=== PATIENT | female | born 1965 | race Two or more races ===

== ENCOUNTER 2018-08-15 16:02 | Inpatient (IN) | payer MEDICAID ==
[~2018-08-15] VITALS: Ht 160 cm; Wt 56.4 kg
[2018-08-15] VITALS (12 sets, daily range): BP systolic 79–120; BP diastolic 45–75
[2018-08-15] MEDS ORDERED: NAPROXEN250 M1 PO (16:18)
[2018-08-15] MEDS ORDERED: Metoclopramide 10mg/2ml Inj IVP ONE (16:45)
[2018-08-15 17:21] LABS: HEMATOCRIT 37.1 % (37.0-47.0); HEMOGLOBIN 13.1 G/DL (12.0-16.0); MEAN CORPUSCULAR VOLUME 82 FL (80-99); PLATELET COUNT 175 K/UL (150-450); RED BLOOD COUNT 4.51 M/UL (4.20-5.40); RED CELL DISTRIBUTION WIDTH 11.3 % (11.6-14.8); WHITE BLOOD COUNT 20.3 K/UL (4.8-10.8)
--- NOTE | 2018-08-15 18:01 | Diagnostic Imaging Report ---
Indication: Abdominal pain Technique: Spiral acquisitions obtained through the abdomen and pelvis. No oral contrast utilized, per emergency room physician request No IV contrast utilized, per referring physician request.. Multiplanar reconstructions were generated. Total dose length product 552.86 mGycm. CTDIvol(s) 10.92 mGy. Dose reduction achieved using automated exposure control Comparison: None Findings: Lack of enteric contrast limits assessment of the GI tract. The appendix is dilated and there is infiltration of the periappendiceal fat. No discrete periappendiceal fluid collections or extra luminal gas demonstrated. Appendicoliths are seen at the base and at the tip of the appendix. A single diverticulum is seen coming off of the cecum. No evidence of diverticulitis.. No small bowel distention. No free or loculated intraperitoneal gas or fluid. There is a tiny umbilical hernia which contains only fat. The distal esophagus, stomach, duodenum are all unremarkable. Lack of IV contrast limits assessment of the solid organs. The liver is equivocally slightly hypoattenuating, consistent with fatty change. The gallbladder, bile ducts, pancreas, spleen, adrenals, kidneys are unremarkable. No ureteral calculi, hydronephrosis, or hydroureter demonstrated. The bladder is unremarkable. No pelvic mass or adenopathy. No retroperitoneal or mesenteric mass or adenopathy. The included lung bases demonstrate minimal atelectatic changes or scarring, otherwise clear. The bones are unremarkable except for minimal degenerative spondylosis changes. Impression: Positive for uncomplicated acute appendicitis Questionable minimal fatty infiltration of the liver Incidental findings as noted Findings discussed by phone with Dr. Larios in the emergency room at the time of interpretation The CT scanner at [facility] is accredited by the [employer] and the scans are performed using protocols designed to limit radiation exposure to as low as reasonably achievable to attain images of sufficient resolution adequate for diagnostic evaluation.
[2018-08-15 18:02] LABS: ANION GAP 13 mmol/L (5-15); BLOOD UREA NITROGEN 14 mg/dL (7-18); CALCIUM 9.3 MG/DL (8.5-10.1); CARBON DIOXIDE 25 MMOL/L (21-32); CHLORIDE 97 MMOL/L (98-107); CREATININE 0.8 MG/DL (0.55-1.30); POTASSIUM 3.2 MMOL/L (3.5-5.1); SODIUM 135 MMOL/L (136-145)
[2018-08-15 18:09] LABS: APPEARANCE,URINE CLEAR; BILIRUBIN, URINE NEGATIVE (NEGATIVE); COLOR,URINE PALE YELLOW; GLUCOSE, URINE (UA) NEGATIVE (NEGATIVE); KETONES,URINE 2+ (NEGATIVE); LEUKOCYTE ESTERASE ,URINE 2+ (NEGATIVE); NITRITE,URINE NEGATIVE (NEGATIVE); PH,URINE 7 (4.5-8.0); PROTEIN,URINE 2+ (NEGATIVE); UROBILINOGEN,URINE NORMAL MG/DL (0.0-1.0)
[2018-08-15 18:12] LABS: ALANINE AMINOTRANSFERASE 26 U/L (12-78); ALKALINE PHOSPHATASE 101 U/L (46-116); ASPARTATE AMINO TRANSFERASE 17 U/L (15-37); BILIRUBIN,TOTAL 0.5 MG/DL (0.2-1.0); CKMB 0.5 NG/ML (0.0-3.6)
--- NOTE | 2018-08-15 18:53 | Diagnostic Imaging Report ---
Indication: Shortness of breath Technique: One view of the chest Comparison: none Findings: Lungs and pleural spaces are clear. Heart size is normal Impression: No acute process
--- NOTE | 2018-08-15 18:59 | Emergency Room Report ---
History of Present Illness General Chief Complaint: Abdominal Pain Source: Patient (Arvind Manning) Present Illness HPI 53-year-old female with history of osteoarthritis currently on naproxen, here complaining of 2 days of 10 out of 10 abdominal pain mainly on the periumbilical and right lower quadrant. Patient reports multiple bouts of vomiting and nausea however denies bloody emesis. Denies diarrhea and constipation. Denies fever and chills. Denies urinary frequency. Patient reports that her pain started after she had a heavy meal. Denies recent travel , chest pain, syncope, palpitation, shortness of breath, and all other associated symptoms. Patient took naproxen today for pain however still extremely nauseous and reporting 10 out of 10 pain. Patient is in moderate distress, and hemodynamically stable (Arvind Manning) Allergies: Coded Allergies: No Known Allergies (Unverified , 08/15/18) Patient History Past Medical History: see triage record Past Surgical History: unable to obtain Pertinent Family History: none Now: No Immunizations: UTD Reviewed Nursing Documentation: PMH: Agreed; PSxH: Agreed (Arvind Manning) Nursing Documentation-PMH Past Medical History: No History, Except For (Arvind Manning) Review of Systems All Other Systems: negative except mentioned in HPI (Arvind Manning) Physical Exam Vital Signs Date Time Temp Pulse Resp B/P (MAP) Pulse Ox O2 Delivery O2 Flow Rate FiO2 08/15/18 16:09 98.2 95 17 116/76 (89) 99 Room Air Sp02 EP Interpretation: reviewed, normal General Appearance: alert, GCS 15, moderate distress Head: normocephalic, atraumatic Eyes: bilateral eye normal inspection, bilateral eye PERRL ENT: normal ENT inspection, hearing grossly normal, normal pharynx, normal voice Neck: normal inspection, full range of motion, supple, thyroid normal Respiratory: normal inspection, chest non-tender, lungs clear, normal breath sounds, no respiratory distress, no retraction, no wheezing Cardiovascular #1: normal inspection, normal peripheral pulses, regular rate, rhythm, no edema, no murmur, normal capillary refill Gastrointestinal: guarding - Right lower quadrant and periumbilical, rebound - Right lower quadrant McBurney's positive, tenderness Rectal: deferred Genitourinary: no CVA tenderness Musculoskeletal: normal inspection, back normal, digits/nails normal, gait/ station normal Neurologic: normal inspection, alert, oriented x3, responsive Psychiatric: normal inspection, judgement/insight normal Skin: normal inspection, normal color, no rash, warm/dry Lymphatic: normal inspection, no adenopathy (Arvind Manning) Medical Decision Making PA Attestation All my diagnosis and treatment plans were reviewed ad discussed with my supervising physician Dr. Larios (Arvind Manning) Diagnostic Impression: Primary Impression: Acute appendicitis ER Course 53-year-old female with history of osteoarthritis currently on naproxen, here complaining of 2 days of 10 out of 10 abdominal pain mainly on the periumbilical and right lower quadrant. Patient reports multiple bouts of vomiting and nausea however denies bloody emesis. Denies diarrhea and constipation. Denies fever and chills. Denies urinary frequency. Patient reports that her pain started after she had a heavy meal. Denies recent travel , chest pain, syncope, palpitation, shortness of breath, and all other associated symptoms. Patient took naproxen today for pain however still extremely nauseous and reporting 10 out of 10 pain. Patient is in moderate distress, and hemodynamically stable Ddx considered but are not limited to: appendicitis, cholycisitis, gastritis, gasthroentritis, UTI, pylonephritis, SBO, diverticulitis, influenza with GI manifestation, AR, Vital signs: are WNL, pt. is afebrile H&PE are most consistent with: Acute appendicitis ORDERS: abdominal CT, abdominal pain set, EKG, Reglan, Pepcid, troponin, ED INTERVENTIONS: Reglan, Pepcid Patient was admited with diagnosis of acute appendicitis to Dr. Brooks under supervision of : Ric pt stable at time of admission WBC: 20, (Arvind Manning) ER Course Patient presented for abdominal pain. She was noted to have onset of pain 2 days ago. Patient also has exam consistent with acute appendicitis. Surgical consult from Dr. Brooks was obtained. Patient will be admitted for further treatment of appendicitis. Patient will be admitted to Dr. Amadeo Murray for inpatient management due to panel physician. Labs Test 08/15/18 17:05 08/15/18 17:52 08/15/18 18:00 White Blood Count 20.3 K/UL (4.8-10.8) Red Blood Count 4.51 M/UL (4.20-5.40) Hemoglobin 13.1 G/DL (12.0-16.0) Hematocrit 37.1 % (37.0-47.0) Mean Corpuscular Volume 82 FL (80-99) Mean Corpuscular Hemoglobin 29.0 PG (27.0-31.0) Mean Corpuscular Hemoglobin Concent 35.2 G/DL (32.0-36.0) Red Cell Distribution Width 11.3 % (11.6-14.8) Platelet Count 175 K/UL (150-450) Mean Platelet Volume 9.2 FL (6.5-10.1) Neutrophils (%) (Auto) % (45.0-75.0) Lymphocytes (%) (Auto) % (20.0-45.0) Monocytes (%) (Auto) % (1.0-10.0) Eosinophils (%) (Auto) % (0.0-3.0) Basophils (%) (Auto) % (0.0-2.0) Differential Total Cells Counted 100 Neutrophils % (Manual) 85 % (45-75) Lymphocytes % (Manual) 9 % (20-45) Monocytes % (Manual) 6 % (1-10) Eosinophils % (Manual) 0 % (0-3) Basophils % (Manual) 0 % (0-2) Band Neutrophils 0 % (0-8) Platelet Estimate Adequate Platelet Morphology Normal Red Blood Cell Morphology Normal Sodium Level 135 MMOL/L (136-145) Potassium Level 3.2 MMOL/L (3.5-5.1) Chloride Level 97 MMOL/L (98-107) Carbon Dioxide Level 25 MMOL/L (21-32) Anion Gap 13 mmol/L (5-15) Blood Urea Nitrogen 14 mg/dL (7-18) Creatinine 0.8 MG/DL (0.55-1.30) Estimat Glomerular Filtration Rate > 60 mL/min (>60) Glucose Level 134 MG/DL (74-106) Calcium Level 9.3 MG/DL (8.5-10.1) Total Bilirubin 0.5 MG/DL (0.2-1.0) Aspartate Amino Transf (AST/SGOT) 17 U/L (15-37) Alanine Aminotransferase (ALT/SGPT) 26 U/L (12-78) Alkaline Phosphatase 101 U/L (46-116) Creatine Kinase MB 0.5 NG/ML (0.0-3.6) Troponin I 0.000 ng/mL (0.000-0.056) Total Protein 8.0 G/DL (6.4-8.2) Albumin 4.0 G/DL (3.4-5.0) Globulin 4.0 g/dL Albumin/Globulin Ratio 1.0 (1.0-2.7) Lipase 377 U/L (73-393) Urine Color Pale yellow Urine Appearance Clear Urine pH 7 (4.5-8.0) Urine Specific [place] 1.005 (1.005-1.035) Urine Protein 2+ (NEGATIVE) Urine Glucose (UA) Negative (NEGATIVE) Urine Ketones 2+ (NEGATIVE) Urine Blood 5+ (NEGATIVE) Urine Nitrite Negative (NEGATIVE) Urine Bilirubin Negative (NEGATIVE) Urine Urobilinogen Normal MG/DL (0.0-1.0) Urine Leukocyte Esterase 2+ (NEGATIVE) Urine RBC 15-20 /HPF (0 - 2) Urine WBC 10-15 /HPF (0 - 2) Urine Squamous Epithelial Cells Occasional /LPF Urine Bacteria Occasional /HPF (NONE) (Tien Larios MD) EKG Diagnostic Results Rate: normal Rhythm: NSR ST Segments: no acute changes (Arvind Manning) Chest X-Ray Diagnostic Results Chest X-Ray Diagnostic Results : Chest X-Ray Ordered: Yes # of Views/Limited/Complete: 1 View Indication: Other PA Xray: Interpretation reviewed, by supervising Interpretation: no consolidation, no effusion, no pneumothorax Impression: No acute disease Electronically Signed by: Arvind Barreto PA-C) CT/MRI/US Diagnostic Results CT/MRI/US Diagnostic Results : Imaging Test Ordered: abdominal CT no contrast Impression acute appendicitis (Arvind Manning) Last Vital Signs Date Time Temp Pulse Resp B/P (MAP) Pulse Ox O2 Delivery O2 Flow Rate FiO2 08/15/18 16:28 86 16 Room Air 08/15/18 16:28 98.4 114/72 100 (Arvind Manning) Status: improved (Tien Larios MD) Disposition: ADMITTED INPATIENT Condition: Stable Referrals: NOT CHOSEN IPA/,REFERRING (PCP) Arvind Manning Aug 15, 2018 18:58 Tien Larios MD Aug 15, 2018 19:06
[2018-08-15] MEDS ORDERED: Piperacillin/Tazobactam 3.375 GM in NS 110 ML IVPB ONE (19:00)
--- NOTE | 2018-08-15 19:10 | Pre-Procedure Note/Attestation ---
Pre-Procedure Note/Attestation Complete Prior to Procedure Planned Procedure: not applicable Procedure Narrative: Laparocopic appendectomy possible open appendectomy Indications for Procedure Pre-Operative Diagnosis: acute appendicitis Attestation I attest that I discussed the nature of the procedure; its benefits; risks and complications; and alternatives (and the risks and benefits of such alternatives ), prior to the procedure, with the patient (or the patient's legal tour sales representative). I attest that, if there was a reasonable possibility of needing a blood transfusion, the patient (or the patient's legal tour sales representative) was given the [facility] standardized written summary, pursuant to the [place] Blood Safety Act ([place] Health and Safety Code # 1645, as amended). I attest that I re-evaluated the patient just prior to the surgery and that there has been no change in the patient's H&P, except as documented below: Collin Brooks MD Aug 15, 2018 19:10
[2018-08-15] MEDS ORDERED: Morphine Sulfate 2mg/ml Inj(IV/IM USE ONLY) IVP PRN (19:30)
[2018-08-15] MEDS ORDERED: Bacitracin 50000 Units Vial ONE (19:44)
[2018-08-15] MEDS ORDERED: Bupivacaine 0.25% Inj 30ml INJ ONE (19:44)
[2018-08-15] MEDS ORDERED: NeoSporin Gu Irrig 1ml Amp IRRIG ONE (19:44)
[2018-08-15] MEDS ORDERED: Zemuron 50mg/5ml Inj IV ONE (19:54)
[2018-08-15] MEDS ORDERED: Glycopyrrolate 0.2mg/ml 1ml Vial ONE (19:55)
[2018-08-15] MEDS ORDERED: Metoclopramide 10mg/2ml Inj ONE (19:55)
[2018-08-15] MEDS ORDERED: fentaNYL 100 mcg/2 mL IV ONE (19:55)
[2018-08-15] MEDS ORDERED: Propofol 200mg/20ml IV ONE (19:55)
[2018-08-15] MEDS ORDERED: Neostigmine 1mg/ml 10ml Inj ONE (19:55)
[2018-08-15] MEDS ORDERED: Lidocaine 1% MPF 10mg/ml 5ml ONE (19:55)
[2018-08-15] MEDS ORDERED: Ketorolac 30mg Inj ONE (19:55)
[2018-08-15] MEDS ORDERED: D5NS 1,000 ML IV SCH (20:29)
[2018-08-15] MEDS ORDERED: Sterile Water Irrig 1000ml IRRIG ONE (20:30)
[2018-08-15] MEDS ORDERED: NS Irrig 1000ml ONE (20:30)
[2018-08-15] MEDS ORDERED: LR 1000ml ONE (20:30)
--- NOTE | 2018-08-15 20:30 | History and Physical Report ---
DATE OF ADMISSION: 08/15/2018 REASON FOR ADMISSION: 1. Abdominal pain. 2. Acute appendicitis. HISTORY OF PRESENT ILLNESS: The patient is a 53-year-old female with known arthritis, who is currently on naproxen and started complaining about 10/10 abdominal pain over the past two days in the periumbilical right lower quadrant. She started developing bouts of nausea, vomiting. No night sweats, fevers, or chills. The naproxen did not help with the pain and she was feeling still extremely nauseous with 10/10 pain as such she presented to the emergency room for further evaluation and care. CT of the abdomen with no contrast demonstrated acute appendicitis. As such, General Surgery was consulted and the patient is being prepped for emergent appendectomy. ALLERGIES: No known drug allergies. PAST MEDICAL HISTORY: Osteoarthritis. PAST SURGICAL HISTORY: None. FAMILY HISTORY: Positive for hypertension and diabetes. REVIEW OF SYSTEMS: NEUROLOGIC: The patient denies headache, change in vision, syncope or presyncopal episodes. CARDIOVASCULAR: No current chest pain, palpitations, or angina. PULMONARY: No difficulty breathing, productive cough, sputum. GASTROINTESTINAL/GENITOURINARY: The patient is having abdominal pain, nausea, and vomiting. No diarrhea ENDOCRINOLOGY: No night sweats, fevers, or chills. LABORATORY DATA: Labs dated August 15, 2018, white blood cell count 20.3, hemoglobin 13.1, platelet 175. Sodium 135, potassium 3.2, glucose 134, calcium 9.3. Troponin 0. PHYSICAL EXAMINATION: VITAL SIGNS: Blood pressure 114/72, respiratory rate 16, pulse 86, temperature 98.4, 100% oxygen saturation on room air. GENERAL: The patient awake, alert, not in distress. HEENT: Extraocular muscles intact. No lymphadenopathy. Oropharyngeal mucosa is clear and dry. CARDIOVASCULAR: S1, S2. No murmurs, rubs, or gallops. Regular rate. PULMONARY: Clear to auscultation bilaterally. No rales, rhonchi or wheezes. ABDOMEN: Tenderness in the right lower quadrant, periumbilical area, very tender to touch. Soft bowel sounds. EXTREMITIES: No edema noted. ASSESSMENT AND PLAN: 1. Abdominal pain with nausea and vomiting. CT of the abdomen and pelvis was positive for uncomplicated acute appendicitis. As such, General Surgery was consulted and patient is to have an appendectomy tonight. 2. DVT prophylaxis with SCDs. 3. Leukocytosis secondary to acute appendicitis. The patient undergoing emergent appendectomy and has received IV Zosyn. 4. Gastrointestinal prophylaxis with famotidine. Nnamdi Garcia MD DR: Aiyana JOB#: [id number] CC:
[2018-08-15] MEDS ORDERED: D5 1/2NS w/KCl 20mEq 1,000 ML IV SCH (21:21)
--- NOTE | 2018-08-15 21:21 | Brief Operative Note ---
Immediate Post Operative Note Operative Note Pre-op Diagnosis: acute appendicitis Post-op Diagnosis: same as pre-op Findings: consistent w/pre-op dx studies Surgeon: MD Asim [employer] Inspector Trimmer: None Anesthesiologist: ELVIS Gates Anesthesia: general Specimen: yes Complications: none Condition: stable Fluids: Per accountant Estimated Blood Loss: minimal Drains: none Implant(s) used?: No Collin Brooks MD Aug 15, 2018 21:21
[2018-08-15] MEDS ORDERED: Acetaminophen 650 MG SUPP RECTAL PRN (21:30)
[2018-08-15] MEDS ORDERED: HYDROmorphone 1mg/ml Carpuject IVP PRN (21:30)
[2018-08-15] MEDS ORDERED: Metoclopramide 10mg/2ml Inj IVP PRN (21:30)
[2018-08-15] MEDS ORDERED: Hydromorphone 0.5mg/0.5ml inj IVP PRN (21:30)
--- NOTE | 2018-08-15 21:38 | Immediate Post-Op Evaluation ---
Immediate Post-Op Evalulation Immediate Post-Op Evalulation Procedure: Lap [place] Date of Evaluation: Aug 15, 2018 Time of Evaluation: 21:40 IV Fluids: 1300 Blood Products: 0 Blood Pressure Systolic: 80 Blood Pressure Diastolic: 50 Pulse Rate: 75 Respiratory Rate: 14 O2 Sat by Pulse Oximetry: 99 Temperature (Fahrenheit): 97.8 Pain Score (1-10): 0 Nausea: No Vomiting: No Patient Status: awake, reacts, patent Hydration Status: adequate Drug: none Mily Bajwa CRNA Aug 15, 2018 21:38
--- NOTE | 2018-08-15 21:40 | Anethesia Preoperative Eval ---
Anesthesia Pre-op PMH/ROS General ASA Score: ASA 2 Mallampati Score Class I : Soft palate, uvula, fauces, pillars visible Class II: Soft palate, uvula, fauces visible Class III: Soft palate, base of uvula visible Class IV: Only hard plate visible Mallampati Classification: Class II Surgeon: Cecilia Diagnosis: acute appendicitis Surgical Procedure: Lap Appendectomy Anesthesia History: none Family History: no anesthesia problems Allergies: Coded Allergies: No Known Allergies (Unverified , 08/15/18) Medications: see eMAR Patient NPO?: Yes NPO Date: Aug 15, 2018 NPO Time: 00:01 Past Medical History Cardiovascular: Denies: HTN, CAD, [place], valve dz, arrhythmia, other Pulmonary: Denies: asthma, COPD, CUAUHTEMOC, other Gastrointestinal/Genitourinary: Denies: GERD, CRI, ESRD, other Neurologic/Psychiatric: Denies: dementia, CVA, depression/anxiety, TIA, other Endocrine: Denies: DM, hypothyroidism, steroids, other HEENT: Denies: cataract (L), cataract (R), glaucoma, ASA'CARSARMIUT (L), ASA'CARSARMIUT (R), other Hematology/Immune: Denies: anemia, DVT, bleeding disorder, other PSxH Narrative: breast surgery Anesthesia Pre-op Phys. Exam Physician Exam Last Vital Signs Date Time Temp Pulse Resp B/P (MAP) Pulse Ox O2 Delivery O2 Flow Rate FiO2 08/15/18 16:28 86 16 Room Air 08/15/18 16:28 98.4 114/72 100 Constitutional: NAD Neurologic: CN 2-12 intact, other - difficult to arouse Cardiovascular: RRR Respiratory: CTA Gastrointestinal: S/NT/ND Airway Exam Mallampati Classification 2 Mallampati Score: Class II MO: full ROM: full Dentures: upper Anesthesia Pre-op A/P Labs Hematology Test 08/15/18 17:05 White Blood Count 20.3 K/UL (4.8-10.8) H Red Blood Count 4.51 M/UL (4.20-5.40) Hemoglobin 13.1 G/DL (12.0-16.0) Hematocrit 37.1 % (37.0-47.0) Mean Corpuscular Volume 82 FL (80-99) Mean Corpuscular Hemoglobin 29.0 PG (27.0-31.0) Mean Corpuscular Hemoglobin Concent 35.2 G/DL (32.0-36.0) Red Cell Distribution Width 11.3 % (11.6-14.8) L Platelet Count 175 K/UL (150-450) Mean Platelet Volume 9.2 FL (6.5-10.1) Neutrophils (%) (Auto) % (45.0-75.0) Lymphocytes (%) (Auto) % (20.0-45.0) Monocytes (%) (Auto) % (1.0-10.0) Eosinophils (%) (Auto) % (0.0-3.0) Basophils (%) (Auto) % (0.0-2.0) Differential Total Cells Counted 100 Neutrophils % (Manual) 85 % (45-75) H Lymphocytes % (Manual) 9 % (20-45) L Monocytes % (Manual) 6 % (1-10) Eosinophils % (Manual) 0 % (0-3) Basophils % (Manual) 0 % (0-2) Band Neutrophils 0 % (0-8) Platelet Estimate Adequate Platelet Morphology Normal Red Blood Cell Morphology Normal Coagulation Test 08/15/18 18:00 Prothrombin Time 10.8 SEC (9.30-11.50) Prothromb Time International Ratio 1.0 (0.9-1.1) Activated Partial Thromboplast Time 32 SEC (23-33) Chemistry Test 08/15/18 17:05 Sodium Level 135 MMOL/L (136-145) L Potassium Level 3.2 MMOL/L (3.5-5.1) L Chloride Level 97 MMOL/L (98-107) L Carbon Dioxide Level 25 MMOL/L (21-32) Anion Gap 13 mmol/L (5-15) Blood Urea Nitrogen 14 mg/dL (7-18) Creatinine 0.8 MG/DL (0.55-1.30) Estimat Glomerular Filtration Rate > 60 mL/min (>60) Glucose Level 134 MG/DL (74-106) H Calcium Level 9.3 MG/DL (8.5-10.1) Total Bilirubin 0.5 MG/DL (0.2-1.0) Aspartate Amino Transf (AST/SGOT) 17 U/L (15-37) Alanine Aminotransferase (ALT/SGPT) 26 U/L (12-78) Alkaline Phosphatase 101 U/L (46-116) Creatine Kinase MB 0.5 NG/ML (0.0-3.6) Troponin I 0.000 ng/mL (0.000-0.056) Total Protein 8.0 G/DL (6.4-8.2) Albumin 4.0 G/DL (3.4-5.0) Globulin 4.0 g/dL Albumin/Globulin Ratio 1.0 (1.0-2.7) Lipase 377 U/L (73-393) Studies Pre-op Studies: EKG - st Risk Assessment & Plan Plan: Mily Blancas CRNA Aug 15, 2018 21:40
[2018-08-15] MEDS ORDERED: fentaNYL 100 mcg/2 mL IV PRN (21:45)
--- NOTE | 2018-08-15 22:30 | Operative Note - Dictated ---
DATE OF OPERATION: 08/15/2018 PREOPERATIVE DIAGNOSIS: Acute appendicitis. POSTOPERATIVE DIAGNOSIS: Acute appendicitis. OPERATION: Laparoscopic appendectomy. COMPLICATION: None. SURGEON: Collin Brooks M.D. AIRCRAFT ENGINE MECHANIC: None. ANESTHESIA: General with endotracheal tube. ANESTHESIOLOGIST: ELVIS Gates INDICATION: This is a 53-year-old, female, who presented to emergency room complaining of abdominal pain since August 13, 2018 in the morning. She stated the pain was located in the lower abdomen and she had one episode of vomiting today. She claimed that she had fever and chills. Physical examination showed tenderness, voluntary guarding and rebound tenderness at right lower quadrant. CBC showed a WBC of 20,300 with a left shift. CAT scan of the abdomen was interpreted as acute appendicitis. DESCRIPTION OF PROCEDURE: The patient was placed supine on the operating table and after general anesthesia with endotracheal tube, the abdomen was properly prepped and draped. A small incision was given above the umbilicus through which a Veress needle was introduced into the intraperitoneal cavity. This cavity was insufflated up to 15 mmHg and then the Veress needle was removed and a 5 mm trocar was placed in the intraperitoneal cavity through the incision above the umbilicus. Laparoscope and camera was introduced into the intraperitoneal cavity through the trocar above the umbilicus. Under direct vision, a 5 mm trocar was placed at the suprapubic area and a 12 mm trocar was placed at the left lower quadrant of the abdomen. Initially, a rapid exploration was performed which showed diaphragms to be normal. The part of the stomach that can be seen was normal. The liver and gallbladder was normal. Bowels were covered with omentum. Exploration of the right lower quadrant cavity was performed which showed inflammatory mass at this area. Cecum was identified and isolated. The inflammatory mass was gradually dissected and isolated which was inflamed Appendix with severe inflammation of the mesoappendix. The appendix and mesoappendix was exposed. Initially the mesoappendix was ligated and transected with the help of the GORDY stapler and then the appendix was ligated and transected at the base with the help of another GORDY stapler. The appendix was removed from the intraperitoneal cavity through the incision at the left lower quadrant with the help of the Endo pouch. After removal of the appendix, the intraperitoneal cavity especially the right paracolic gutter and the pelvis was thoroughly irrigated with antibiotic solution. Another exploration was performed and there was no bleeding or complication. The trocars were removed under direct vision. The incisions were infiltrated with total of 30 mL of Marcaine and then the subcutaneous tissue was approximated with 4-0 chromic. The skin incisions were approximated with running subcuticular suture of 4-0 chromic. The patient tolerated the procedure very well and was transferred to recovery room in stable condition and extubated. The sponge and needle count correct. Estimated blood loss was 5 mL. Condition of the patient at the end of procedure is stable. Collin Brooks M.D. DR: Rene JOB#: [id number] CC: [email or web address]
[2018-08-16] VITALS (7 sets, daily range): BP systolic 82–98; BP diastolic 47–59
[2018-08-16] MEDS: D5 1/2NS w/KCl 20mEq 1,000 ML IV SCH ×3 (00:19→17:58)
--- NOTE | 2018-08-16 03:30 | Consultation ---
DATE OF CONSULTATION: 08/15/2018 PREOPERATIVE CONSULTATION CONSULTING PHYSICIAN: Collin Brooks M.D. REQUESTING PHYSICIAN: Emergency room physician. HISTORY OF PRESENT ILLNESS: This is a 53-year-old, female, who presented with abdominal pain for 2 days. She stated the pain started on August 13, 2018 in the morning and apparently it has been periumbilical. At the present time, the pain is mainly in the lower abdomen. She stated that she had vomited today. She claimed that she had fever but denies any cough. She claimed that she has dysuria. She denies any previous history of similar pain. PAST MEDICAL HISTORY: She denies allergies, asthma, diabetes, hypertension, cardiac and renal diseases. PAST SURGICAL HISTORY: Include left breast biopsy. MEDICATIONS: The patient takes Naprosyn for the joint pain. SOCIAL HISTORY: The patient is a 53-year-old, female, who is with three children. 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 REVIEW OF SYSTEMS: Noncontributory. PHYSICAL EXAMINATION: GENERAL: The patient appeared to be a well-developed, well-nourished, mildly obese, 53-year-old, female, lying on the gurney, complaining of abdominal pain. HEENT: Head is normocephalic and atraumatic. Eyes, pupils are equal, round, and reactive to light. Mouth is clear. NECK: There is no palpable thyromegaly or adenopathy. CHEST: Clear to auscultation and percussion. HEART: There is no gallop or murmur. S1 and S2 are within normal limits. ABDOMEN: Soft and flat with tenderness, voluntary guarding, and mild rebound tenderness in the right lower quadrant. There is no organomegaly and bowel sounds are present. GENITAL: Deferred. EXTREMITIES: Within normal limits. LABORATORY DATA: CBC has shown a WBC of 20,300 with a left shift. Chemistry is within normal limits. UA has shown 10 to 15 wbc's. CAT scan of the abdomen has been interpreted as acute appendicitis with dilated appendix with periappendiceal stranding and fecalith. ASSESSMENT: Acute appendicitis. PLAN: After rehydration, the patient will undergo a laparoscopy appendectomy, possible open appendectomy. The risks and benefits have been explained to her. She understood and wanted to consent. Collin Brooks M.D. DR: Rene JOB#: [id number] CC:
[2018-08-16 06:35] LABS: HEMATOCRIT 31.7 % (37.0-47.0); MEAN CORPUSCULAR VOLUME 86 FL (80-99); PLATELET COUNT 134 K/UL (150-450); RED BLOOD COUNT 3.68 M/UL (4.20-5.40); RED CELL DISTRIBUTION WIDTH 12.1 % (11.6-14.8); WHITE BLOOD COUNT 17.3 K/UL (4.8-10.8)
[2018-08-16 06:37] LABS: ANION GAP 9 mmol/L (5-15); BLOOD UREA NITROGEN 13 mg/dL (7-18); CALCIUM 7.7 MG/DL (8.5-10.1); CARBON DIOXIDE 22 MMOL/L (21-32); CHLORIDE 109 MMOL/L (98-107); CREATININE 0.9 MG/DL (0.55-1.30); POTASSIUM 3.9 MMOL/L (3.5-5.1); SODIUM 140 MMOL/L (136-145)
[2018-08-16] MEDS: Piperacillin/Tazobactam 4.5 GM in NS 110 ML IVPB SCH ×2 (06:40→14:10)
--- NOTE | 2018-08-16 07:25 | Nephrology Progress Note ---
Assessment/Plan Assessment/Plan: A/P 1) Abd Pain- appendicitis - resolved 2) Apendicitis- Abx, s/p appendectomy. Abx - DC once cleared by gen surgery 3) DVT prophylaxis- SCD 4) GI prophylaxsis- famotidine Subjective Date patient seen: Aug 16, 2018 Time patient seen: 07:22 ROS Limited/Unobtainable: No Allergies: Coded Allergies: No Known Allergies (Unverified , 08/15/18) Subjective Patient feeling better. Having clear liquid diet Objective Last 24 Hour Vital Signs Date Time Temp Pulse Resp B/P (MAP) Pulse Ox O2 Delivery O2 Flow Rate FiO2 08/16/18 04:00 98.5 75 18 82/47 (59) 99 08/16/18 00:01 98.0 86 18 85/54 (64) 98 08/15/18 23:08 Nasal Cannula 2.0 08/15/18 23:00 97.2 80 18 85/52 (63) 99 08/15/18 22:42 98.0 84 18 87/52 (64) 98 08/15/18 22:38 98.0 84 18 90/52 98 Nasal Cannula 3 08/15/18 22:30 82 18 85/54 98 Nasal Cannula 3 08/15/18 22:15 82 18 84/57 99 Nasal Cannula 3 08/15/18 22:05 85 20 86/55 98 Nasal Cannula 3 08/15/18 21:55 81 22 83/55 100 Simple Mask 6 08/15/18 21:45 79 23 83/52 100 Simple Mask 6 08/15/18 21:40 78 24 81/47 99 Simple Mask 6 08/15/18 21:38 75 14 99 08/15/18 21:35 97.8 75 14 79/45 99 Simple Mask 6 08/15/18 20:30 98.4 82 16 120/75 100 Room Air 08/15/18 19:20 98.4 16 120/75 100 Room Air 08/15/18 16:28 86 16 Room Air 08/15/18 16:28 98.4 86 16 114/72 100 Room Air 08/15/18 16:09 98.2 95 17 116/76 (89) 99 Room Air Intake and Output 08/15/18 08/16/18 18:59 06:59 Intake Total 3200 ml Output Total 808 ml Balance 2392 ml Intake Oral 300 ml IV Total 2900 ml Output Urine Total 800 ml Estimated Blood Loss 8 ml # Voids 1 1 Laboratory Tests 08/15/18 17:05: White Blood Count 20.3H, Red Blood Count 4.51, Hemoglobin 13.1, Hematocrit 37.1 , Mean Corpuscular Volume 82, Mean Corpuscular Hemoglobin 29.0, Mean Corpuscular Hemoglobin Concent 35.2, Red Cell Distribution Width 11.3L, Platelet Count 175, Mean Platelet Volume 9.2, Neutrophils (%) (Auto) , Lymphocytes (%) (Auto) , Monocytes (%) (Auto) , Eosinophils (%) (Auto) , Basophils (%) (Auto) , Differential Total Cells Counted 100, Neutrophils % ( Manual) 85H, Lymphocytes % (Manual) 9L, Monocytes % (Manual) 6, Eosinophils % ( Manual) 0, Basophils % (Manual) 0, Band Neutrophils 0, Platelet Estimate Adequate, Platelet Morphology Normal, Red Blood Cell Morphology Normal, Sodium Level 135L, Potassium Level 3.2L, Chloride Level 97L, Carbon Dioxide Level 25, Anion Gap 13, Blood Urea Nitrogen 14, Creatinine 0.8, Estimat Glomerular Filtration Rate > 60, Glucose Level 134H, Calcium Level 9.3, Total Bilirubin 0.5 , Aspartate Amino Transf (AST/SGOT) 17, Alanine Aminotransferase (ALT/SGPT) 26, Alkaline Phosphatase 101, Creatine Kinase MB 0.5, Troponin I 0.000, Total Protein 8.0, Albumin 4.0, Globulin 4.0, Albumin/Globulin Ratio 1.0, Lipase 377 08/15/18 17:52: Urine Color Pale yellow, Urine Appearance Clear, Urine pH 7, Urine Specific [place] 1.005, Urine Protein 2+H, Urine Glucose (UA) Negative, Urine Ketones 2+H , Urine Blood 5+H, Urine Nitrite Negative, Urine Bilirubin Negative, Urine Urobilinogen Normal, Urine Leukocyte Esterase 2+H, Urine RBC 15-20H, Urine WBC 10-15H, Urine Squamous Epithelial Cells Occasional, Urine Bacteria Occasional 08/15/18 18:00: Prothrombin Time 10.8, Prothromb Time International Ratio 1.0, Activated Partial Thromboplast Time 32 08/16/18 05:20: White Blood Count 17.3H, Red Blood Count 3.68L, Hemoglobin 11.0L, Hematocrit 31.7L, Mean Corpuscular Volume 86, Mean Corpuscular Hemoglobin 29.9, Mean Corpuscular Hemoglobin Concent 34.7, Red Cell Distribution Width 12.1, Platelet Count 134L, Mean Platelet Volume 10.8H, Neutrophils (%) (Auto) , Lymphocytes (% ) (Auto) , Monocytes (%) (Auto) , Eosinophils (%) (Auto) , Basophils (%) (Auto) , Neutrophils % (Manual) [Pending], Lymphocytes % (Manual) [Pending], Platelet Estimate [Pending], Platelet Morphology [Pending], Sodium Level 140, Potassium Level 3.9, Chloride Level 109H, Carbon Dioxide Level 22, Anion Gap 9, Blood Urea Nitrogen 13, Creatinine 0.9, Estimat Glomerular Filtration Rate > 60, Glucose Level 143H, Calcium Level 7.7L Height (Feet): 5 Height (Inches): 3.00 Weight (Pounds): 125 General Appearance: no apparent distress, alert EENT: normal ENT inspection Neck: normal alignment, supple Cardiovascular: normal rate, regular rhythm Respiratory/Chest: lungs clear Abdomen: non tender, soft Edema: no edema noted Arm (L), no edema noted Arm (R), no edema noted Leg (L), no edema noted Leg (R), no edema noted Pedal (L), no edema noted Pedal (R), no edema noted Generalized Nnamdi Garcia MD Aug 16, 2018 07:25
--- NOTE | 2018-08-16 07:45 | 48 Hour Post Anesthesia Eval ---
Post Anesthesia Evaluation Procedure: Lap Appy Date of Evaluation: Aug 16, 2018 Time of Evaluation: 07:45 Blood Pressure Systolic: 85 0: 40 Pulse Rate: 75 Respiratory Rate: 14 Temperature (Fahrenheit): 99.0 O2 Sat by Pulse Oximetry: 98 Airway: patent Nausea: No Vomiting: No Hydration Status: adequate Cardiopulmonary Status: stable Mental Status/LOC: patient returned to baseline Follow-up Care/Observations: na Post-Anesthesia Complications: none Follow-up care needed: N/A Mily Bajwa CRNA Aug 16, 2018 07:45
[2018-08-16] MEDS ORDERED: Tubing IV Secondary IV ONE (10:48)
--- NOTE | 2018-08-16 13:15 | General Surgery Progress Note ---
General Surgery-Progress Note Subjective Symptoms: passing flatus Objective Last 24 Hour Vital Signs Date Time Temp Pulse Resp B/P (MAP) Pulse Ox O2 Delivery O2 Flow Rate FiO2 08/16/18 09:00 Room Air 08/16/18 08:00 98.1 76 16 91/56 (68) 98 08/16/18 07:45 75 14 98 08/16/18 04:00 98.5 75 18 82/47 (59) 99 08/16/18 00:01 98.0 86 18 85/54 (64) 98 08/15/18 23:08 Nasal Cannula 2.0 08/15/18 23:00 97.2 80 18 85/52 (63) 99 08/15/18 22:42 98.0 84 18 87/52 (64) 98 08/15/18 22:38 98.0 84 18 90/52 98 Nasal Cannula 3 08/15/18 22:30 82 18 85/54 98 Nasal Cannula 3 08/15/18 22:15 82 18 84/57 99 Nasal Cannula 3 08/15/18 22:05 85 20 86/55 98 Nasal Cannula 3 08/15/18 21:55 81 22 83/55 100 Simple Mask 6 08/15/18 21:45 79 23 83/52 100 Simple Mask 6 08/15/18 21:40 78 24 81/47 99 Simple Mask 6 08/15/18 21:38 75 14 99 08/15/18 21:35 97.8 75 14 79/45 99 Simple Mask 6 08/15/18 20:30 98.4 82 16 120/75 100 Room Air 08/15/18 19:20 98.4 16 120/75 100 Room Air 08/15/18 16:28 86 16 Room Air 08/15/18 16:28 98.4 86 16 114/72 100 Room Air 08/15/18 16:09 98.2 95 17 116/76 (89) 99 Room Air I&O Intake and Output 08/15/18 08/16/18 19:00 07:00 Intake Total 3200 ml Output Total 808 ml Balance 2392 ml Intake Oral 300 ml IV Total 2900 ml Output Urine Total 800 ml Estimated Blood Loss 8 ml # Voids 1 1 Dressing: dry Drains: none Respiratory: clear Abdomen: soft, flat, tenderness, decreased bowel sounds Extremities: no tenderness Laboratory Tests Test 08/15/18 17:05 08/15/18 17:52 08/15/18 18:00 08/16/18 05:20 White Blood Count 20.3 K/UL (4.8-10.8) H 17.3 K/UL (4.8-10.8) H Red Blood Count 4.51 M/UL (4.20-5.40) 3.68 M/UL (4.20-5.40) L Hemoglobin 13.1 G/DL (12.0-16.0) 11.0 G/DL (12.0-16.0) L Hematocrit 37.1 % (37.0-47.0) 31.7 % (37.0-47.0) L Mean Corpuscular Volume 82 FL (80-99) 86 FL (80-99) Mean Corpuscular Hemoglobin 29.0 PG (27.0-31.0) 29.9 PG (27.0-31.0) Mean Corpuscular Hemoglobin Concent 35.2 G/DL (32.0-36.0) 34.7 G/DL (32.0-36.0) Red Cell Distribution Width 11.3 % (11.6-14.8) L 12.1 % (11.6-14.8) Platelet Count 175 K/UL (150-450) 134 K/UL (150-450) L Mean Platelet Volume 9.2 FL (6.5-10.1) 10.8 FL (6.5-10.1) H Neutrophils (%) (Auto) % (45.0-75.0) % (45.0-75.0) Lymphocytes (%) (Auto) % (20.0-45.0) % (20.0-45.0) Monocytes (%) (Auto) % (1.0-10.0) % (1.0-10.0) Eosinophils (%) (Auto) % (0.0-3.0) % (0.0-3.0) Basophils (%) (Auto) % (0.0-2.0) % (0.0-2.0) Differential Total Cells Counted 100 100 Neutrophils % (Manual) 85 % (45-75) H 90 % (45-75) H Lymphocytes % (Manual) 9 % (20-45) L 6 % (20-45) L Monocytes % (Manual) 6 % (1-10) 4 % (1-10) Eosinophils % (Manual) 0 % (0-3) 0 % (0-3) Basophils % (Manual) 0 % (0-2) 0 % (0-2) Band Neutrophils 0 % (0-8) 0 % (0-8) Platelet Estimate Adequate Decreased L Platelet Morphology Normal Normal Red Blood Cell Morphology Normal Normal Sodium Level 135 MMOL/L (136-145) L 140 MMOL/L (136-145) Potassium Level 3.2 MMOL/L (3.5-5.1) L 3.9 MMOL/L (3.5-5.1) Chloride Level 97 MMOL/L (98-107) L 109 MMOL/L (98-107) H Carbon Dioxide Level 25 MMOL/L (21-32) 22 MMOL/L (21-32) Anion Gap 13 mmol/L (5-15) 9 mmol/L (5-15) Blood Urea Nitrogen 14 mg/dL (7-18) 13 mg/dL (7-18) Creatinine 0.8 MG/DL (0.55-1.30) 0.9 MG/DL (0.55-1.30) Estimat Glomerular Filtration Rate > 60 mL/min (>60) > 60 mL/min (>60) Glucose Level 134 MG/DL (74-106) H 143 MG/DL (74-106) H Calcium Level 9.3 MG/DL (8.5-10.1) 7.7 MG/DL (8.5-10.1) L Total Bilirubin 0.5 MG/DL (0.2-1.0) Aspartate Amino Transf (AST/SGOT) 17 U/L (15-37) Alanine Aminotransferase (ALT/SGPT) 26 U/L (12-78) Alkaline Phosphatase 101 U/L (46-116) Creatine Kinase MB 0.5 NG/ML (0.0-3.6) Troponin I 0.000 ng/mL (0.000-0.056) Total Protein 8.0 G/DL (6.4-8.2) Albumin 4.0 G/DL (3.4-5.0) Globulin 4.0 g/dL Albumin/Globulin Ratio 1.0 (1.0-2.7) Lipase 377 U/L (73-393) Urine Color Pale yellow Urine Appearance Clear Urine pH 7 (4.5-8.0) Urine Specific [place] 1.005 (1.005-1.035) Urine Protein 2+ (NEGATIVE) H Urine Glucose (UA) Negative (NEGATIVE) Urine Ketones 2+ (NEGATIVE) H Urine Blood 5+ (NEGATIVE) H Urine Nitrite Negative (NEGATIVE) Urine Bilirubin Negative (NEGATIVE) Urine Urobilinogen Normal MG/DL (0.0-1.0) Urine Leukocyte Esterase 2+ (NEGATIVE) H Urine RBC 15-20 /HPF (0 - 2) H Urine WBC 10-15 /HPF (0 - 2) H Urine Squamous Epithelial Cells Occasional /LPF Urine Bacteria Occasional /HPF (NONE) Prothrombin Time 10.8 SEC (9.30-11.50) Prothromb Time International Ratio 1.0 (0.9-1.1) Activated Partial Thromboplast Time 32 SEC (23-33) Assessment Additional Comments S/P lap appy Plan Additional Comments continue present treatment Collin Brooks MD Aug 16, 2018 13:15
[2018-08-16] MEDS: Docusate Sod/Senna tab ORAL SCH ×2 (13:43→17:31)
--- NOTE | 2018-08-16 16:04 | Cardiology Report ---
APPROVED REPORT EKG Measurement Heart [id number] Normal sinus rhythm Possible Left atrial enlargement Left axis deviation Low voltage QRS Incomplete right bundle branch block Possible Anterolateral infarct, age undetermined Abnormal ECG
[2018-08-16] MEDS: Zoysn 3.37gm in NS 100ML IVPB SCH (21:16)
[2018-08-17 04:00] VITALS: BP 95/57
[2018-08-17] MEDS: D5 1/2NS w/KCl 20mEq 1,000 ML IV SCH (05:45)
[2018-08-17] MEDS: Zoysn 3.37gm in NS 100ML IVPB SCH (06:22)
--- NOTE | 2018-08-17 07:19 | Nephrology Progress Note ---
Assessment/Plan Assessment/Plan: A/P 1) Abd Pain- appendicitis - resolved 2) Apendicitis- Abx, s/p appendectomy. Abx - DC once cleared by gen surgery - am labs pending - Abx at DC per gen surgery 3) DVT prophylaxis- SCD 4) GI prophylaxsis- famotidine Subjective Date patient seen: Aug 17, 2018 Time patient seen: 07:17 ROS Limited/Unobtainable: No Allergies: Coded Allergies: No Known Allergies (Unverified , 08/15/18) Subjective Patient feeling better. Having clear liquid diet in no dsitress Objective Last 24 Hour Vital Signs Date Time Temp Pulse Resp B/P (MAP) Pulse Ox O2 Delivery O2 Flow Rate FiO2 08/17/18 04:00 98.7 71 18 95/57 (70) 97 08/16/18 21:00 Room Air 08/16/18 20:00 99.0 73 17 87/59 (68) 95 08/16/18 16:00 99.4 78 16 98/58 (71) 99 08/16/18 12:00 98.2 70 15 88/57 (67) 99 08/16/18 09:00 Room Air 08/16/18 08:00 98.1 76 16 91/56 (68) 98 08/16/18 07:45 75 14 98 Intake and Output 08/16/18 08/17/18 18:59 06:59 Intake Total 3600 ml 1700 ml Balance 3600 ml 1700 ml Intake Oral 2800 ml 600 ml IV Total 800 ml 1100 ml # Voids 7 2 # Bowel Movements 1 Height (Feet): 5 Height (Inches): 3.00 Weight (Pounds): 124 General Appearance: no apparent distress, alert EENT: normal ENT inspection Neck: normal alignment, supple Cardiovascular: normal rate, regular rhythm Respiratory/Chest: lungs clear, normal breath sounds Abdomen: non tender, soft Edema: no edema noted Arm (L), no edema noted Arm (R), no edema noted Leg (L), no edema noted Leg (R), no edema noted Pedal (L), no edema noted Pedal (R), no edema noted Generalized Nnamdi Garcia MD Aug 17, 2018 07:19
[2018-08-17 08:00] VITALS: BP 102/64
[2018-08-17] MEDS: Docusate Sod/Senna tab ORAL SCH (08:23)
[2018-08-17 08:42] LABS: BASOPHILS % (AUTO) 0.7 % (0.0-2.0); HEMATOCRIT 31.3 % (37.0-47.0); HEMOGLOBIN 10.6 G/DL (12.0-16.0); LYMPHOCYTES % (AUTO) 13.2 % (20.0-45.0); MEAN CORPUSCULAR VOLUME 86 FL (80-99); MONOCYTES % (AUTO) 4.9 % (1.0-10.0); NEUTROPHILS % (AUTO) 77.2 % (45.0-75.0); PLATELET COUNT 117 K/UL (150-450); RED BLOOD COUNT 3.64 M/UL (4.20-5.40); RED CELL DISTRIBUTION WIDTH 11.8 % (11.6-14.8)
[2018-08-17 09:10] LABS: ANION GAP 10 mmol/L (5-15); BLOOD UREA NITROGEN 7 mg/dL (7-18); CALCIUM 8.5 MG/DL (8.5-10.1); CARBON DIOXIDE 24 MMOL/L (21-32); CHLORIDE 111 MMOL/L (98-107); CREATININE 0.9 MG/DL (0.55-1.30); POTASSIUM 3.2 MMOL/L (3.5-5.1); SODIUM 145 MMOL/L (136-145)
[2018-08-17] MEDS ORDERED: CEPHALEXIN500 MG ORAL (09:33)
[2018-08-17] MEDS ORDERED: TRAMADOL HCL50 MG ORAL (09:34)
[2018-08-17] MEDS ORDERED: PERI-COLACE1 EA ORAL (09:37)
--- NOTE | 2018-08-17 10:08 | Discharge Instructions ---
Discharge Instructions Discharge Instructions Follow up with: my office in one week Diet: regular Resume Normal Activity?: Yes Activity: as tolerated For Surgical Patients Dressing Care: other - will be removed by surgeon May shower: Yes For Congestive Heart Failure Reminder Report to your physician any weight gain of 5 pounds or more in one week. Collin Brooks MD Aug 17, 2018 10:08
[2018-08-17 12:00] VITALS: BP 125/68
--- NOTE | 2018-08-18 08:22 | Discharge Summary ---
Discharge Summary Discharge Summary _ DATE OF ADMISSION: 08/15/2018 DATE OF DISCHARGE: 08/17/2018 DISCHARGED BY: Dr. Nnamdi Garcia CONSULTANTS: Dr. Collin Brooks BRIEF HOSPITAL COURSE: Patient is a 53-year-old female, with known arthritis, who had been on naproxen , started complaining of abdominal pain, on the periumbilical and right lower quadrant, 10 out of 10 over the past 2 days. She started to have bouts of nausea and vomiting. She denied any night sweats, fever or chills. The naproxen did not help with the pain and she was feeling extremely nauseated. She then presented to ED for further evaluation. On evaluation at the ED, vital signs stable. Patient was afebrile. Blood work showed elevated WBC of 20.3. Hemoglobin and hematocrit were stable. Troponin was negative. LFTs were normal. Lipase normal. Urinalysis with 2+ leukocyte esterase, 15-20 RBC, 10-15 urine WBC. EKG showed normal sinus rhythm with no acute changes. Chest x-ray did not show any acute disease. CT of the abdomen and pelvis without contrast showed positive for uncomplicated acute appendicitis. He was then admitted for acute appendicitis. Surgeon was consulted. On 08/15/2018, she underwent laparoscopic appendectomy. She tolerated procedure well and was transferred to recovery room in stable condition. He was given SCDs for DVT prophylaxis. She was placed on GI prophylaxis. She was continued on Zosyn. Urine culture showed growth of mixed gram-positive organisms with 20,000-30,000 colony-forming units/ml. WBC eventually normalized. Diet was advanced. She was tolerating diet well. She was eventually discharged home. FINAL DIAGNOSES: Abdominal pain due to acute appendicitis Acute appendicitis status post laparoscopic appendectomy DISPOSITION: Patient was discharged home. DISCHARGE MEDICATIONS: Refer to Discharge Medication List. DISCHARGE INSTRUCTIONS: Follow-up in a week. I have been assigned to complete a discharge summary on this account, I was not involved with the patient's management. Stefanie Mann NP Aug 18, 2018 08:22
== END 2018-08-17 13:30 | disposition home or self-care (01) | DRG 234 ==
LOC: EMR 18:14 → EDBEDREQ 19:06 → SUR 19:11 → 3E 23:21
PROC: 0DTJ4ZZ Resection of Appendix, Percutaneous Endoscopic Approach (ICD-10-PCS; principal; 2018-08-15 20:00)
DX: K35.80 Unspecified acute appendicitis (principal); M19.90 Unspecified osteoarthritis, unspecified site
CPT/HCPCS: 36415; 71045; 74176; 80048; 80053; 81003; 82553; 83690; 84484; 85007; 85025; 85610; 85730; 86850; 86900; 86901; 87086; 93005; 94003; 94150; 96365; 96375; 99285; C9399; J2405; J2710; J2765; J8499